=== PATIENT | female | born 1980 | race Caucasian/White ===

== ENCOUNTER → 2017-06-06 | Outpatient (CLI) | payer SELFPAY, OTHER | LOC: M OUTALCOH 13:37 | DX: Z13.9 Encounter for screening, unspecified (principal) ==

== ENCOUNTER 2017-06-13 15:58 | Outpatient (RCR) | payer OTHER, SELFPAY | END 2017-07-07 | LOC: M OUTALCOH 06-20 15:30 | DX: F10.20 Alcohol dependence, uncomplicated (principal) | CPT/HCPCS: 90834 ==

== ENCOUNTER 2017-07-10 16:00 | Outpatient (RCR) | payer SELFPAY, OTHER | END 2017-08-06 | LOC: M OUTALCOH 07-17 16:00 | DX: F10.20 Alcohol dependence, uncomplicated (principal) ==

== ENCOUNTER 2017-08-07 16:00 | Outpatient (RCR) | payer OTHER, SELFPAY | END 2017-09-06 | LOC: M OUTALCOH 08-14 16:00 | DX: F10.20 Alcohol dependence, uncomplicated (principal) ==

== ENCOUNTER 2017-09-07 13:45 | Outpatient (RCR) | payer SELFPAY | END 2017-10-06 | LOC: M OUTALCOH 13:45 | DX: F10.20 Alcohol dependence, uncomplicated (principal) ==

== ENCOUNTER 2017-10-12 14:15 | Outpatient (RCR) | payer OTHER, SELFPAY | END 2017-11-06 | LOC: M OUTALCOH 14:15 | DX: F10.20 Alcohol dependence, uncomplicated (principal) ==

== ENCOUNTER 2017-12-14 11:28 | Outpatient (RCR) | payer OTHER, SELFPAY | END 2018-01-06 | LOC: M OUTALCOH 11:28 | DX: F10.20 Alcohol dependence, uncomplicated (principal) ==